=== PATIENT | female | born 1965 | race Caucasian/White ===

== ENCOUNTER → 2021-04-06 | Day surgery (SDC) | payer MEDICARE, OTHER ==
[2021-04-04 09:54] LABS: BASOPHILS % 0.3 % (0.0-1.0); EOSINOPHILS # (AUTO) 0.1 (0.0-0.4); HEMATOCRIT 33.9 % (34.2-44.1); HEMOGLOBIN 10.9 g/dL (12.0-16.0); LYMPHOCYTES # (AUTO) 2.1 (1.0-3.2); LYMPHOCYTES % 29.5 % (18.0-39.1); MEAN CORPUSCULAR HEMOGLOBIN 31.1 pg (28-32); MEAN CORPUSCULAR HGB CONC 32.2 g/dL (31-35); MEAN CORPUSCULAR VOLUME 96.9 fL (81-99); MONOCYTES # (AUTO) 0.6 (0.2-0.8); MONOCYTES % 8.2 % (4.4-11.3); NEUTROPHILS # (AUTO) 4.2 (2.1-6.9); NEUTROPHILS % 59.4 % (38.7-80.0); PLATELET COUNT 144 x10e3/uL (140-360); RED CELL DISTRIBUTION WIDTH 15.3 % (11.7-14.4)
[2021-04-04 10:31] LABS: ANION GAP 13.1 mmol/L (8-16); CALCIUM 9.3 mg/dL (8.4-10.2); CREATININE, SERUM 0.94 mg/dL (0.57-1.11); POTASSIUM 5.1 mmol/L (3.5-5.1)
[~2021-04-06] MED LIST: ALPRAZOLAM1 MG PO; AUGMENTIN 500-1 EACH PO; BUSPIRONE HCL5 MG PO; CARVEDILOL12.5 MG PO; CEFTRIAXONE 1 GM VIAL ONE; CLONAZEPAM1 MG PO; DETROL LA4 MG PO; DEXAMETHASONE SOD PHOS INJ 4 MG/ML VIAL ONE; DOXEPIN HCL25 MG PO; EPHEDRINE SULFATE INJ 50 MG/ML VIAL ONE; FENTANYL CITRATE/PF 100MCG/2 ML INJ ONE; GEMFIBROZIL600 MG; GLIPIZIDE5 MG PO; INVOKANA; IOPAMIDOL 300MG/ML 50ML INFUS..BTL IV ONE; LATUDA20 MG; LIDOCAINE HCL 2% LOCAL INJ 5 ML SDV VIAL INJ ONE; LISINOPRIL40 MG PO; METFORMIN HCL500 M2 PO; MIDAZOLAM HCL 2 MG/2 ML VIAL ONE; MONTELUKAST SOD10 MG PO; NEURONTIN400 MG PO; ONDANSETRON HCL INJ 2MG/ML 2ML 2 MG/ML VIAL ONE; OZEMPIC1 MG/0.75 SC; POVIDONE IODINE 0.05% 0.05 % ML PO ONE; PROPOFOL IV EMULSION 10 MG/ML 20 ML VIAL ONE; SEVOFLURANE INHAL SOLN 250 ML PEN BTL ONE; SIMVASTATIN20 MG PO; SODIUM CHLORIDE 0.9% 50ML 50 ML ONE; VICTOZA 1.2 MG; ZOLPIDEM TARTRA10 MG PO; [UNRECOGNIZED DRUG - OTHER]; [UNRECOGNIZED DRUG - OTHER]
[2021-04-06 08:20] VITALS: BP 116/67
== END | disposition home or self-care (01) ==
LOC: OR 05:58
PROVIDERS: ATTEND Urology
DX: N30.10 Interstitial cystitis (chronic) without hematuria (principal); N39.0 Urinary tract infection, site not specified; Z88.1 Allergy status to other antibiotic agents; Z88.5 Allergy status to narcotic agent; R31.29 Other microscopic hematuria; N39.46 Mixed incontinence; R35.1 Nocturia; I10 Essential (primary) hypertension; E11.9 Type 2 diabetes mellitus without complications; Z01.810 Encounter for preprocedural cardiovascular examination; Z01.812 Encounter for preprocedural laboratory examination; Z01.818 Encounter for other preprocedural examination; Z20.822 Contact with and (suspected) exposure to COVID-19
CPT/HCPCS: 36415 ×2; 52005; 53899; 71046; 74420; 80048; 82948; 85025; 93005; C1758; C1769; J0696; J1100; J2001; J2250; J2405; J2704; J3010; Q9967; U0002